=== PATIENT | female | born 1965 | race Two or more races ===

== ENCOUNTER 2018-08-10 13:19 | Outpatient (CLI) | payer MEDICAID ==
[~2018-08-10] VITALS: Ht 160 cm; Wt 109.8 kg
[2018-08-10] MEDS ORDERED: OXYBUTYNIN CHLOR5 M1 ORAL (14:55)
[2018-08-10] MEDS ORDERED: SULINDAC150 MG PO (14:55)
[2018-08-10] MEDS ORDERED: ALBUTEROL SULF8.5 GM INH (14:55)
[2018-08-10] MEDS ORDERED: VITAMIN D1000 UNI1 ORAL (14:55)
[2018-08-10] MEDS ORDERED: ASPIRIN EC81 MG ORAL (14:55)
[2018-08-10] MEDS ORDERED: LOSARTAN POTASS25 MG ORAL (14:55)
[2018-08-10] MEDS ORDERED: SIMVASTATIN40 MG ORAL (14:55)
[2018-08-10] MEDS ORDERED: FAMOTIDINE10 MG ORAL (14:55)
[2018-08-10] MEDS ORDERED: DITROPAN10 MG ORAL (14:55)
[2018-08-10] MEDS ORDERED: FLUTICASONE PRO16 G1 NASAL (14:55)
[2018-08-10] MEDS ORDERED: FEXOFENADINE H180 MG PO (14:55)
[2018-08-10] MEDS ORDERED: FLOVENT2 PUFF1 INH (14:55)
[2018-08-10 14:56] VITALS: BP 125/68
--- NOTE | 2018-08-10 15:24 | GI Initial Consult Note ---
History of Present Illness General Date patient seen: Aug 10, 2018 Time patient seen: 15:18 Referring physician: DIVINE BRYAN Reason for Consultation: PRE OP ENDOSCOPY Present Illness HPI This is a 53-year-old female patient presents today for pre-endoscopy for gastric bypass surgery. The patient reported being unable to maintain any lost weight off regardless of nutrition and diet. Patient denies any GI symptoms at this time; denies any abdominal pain, nausea vomiting or any diarrhea. The patient is aware of the risk and benefits of the gastric bypass. She also acknowledge that she refused to have the gastric balloon or a gastric sleeve performed. Patient denies any history of endoscopic or colonoscopy. Denies any unintentional weight loss or changes in dietary habits. No signs of abuse or neglect. Patient is not fall risk. Home Meds Reported Medications Sulindac (SULINDAC) 150 Mg Tablet, 150 MG PO DAILY, TAB 08/10/18 Simvastatin (ZOCOR) 40 Mg Tablet, 40 MG ORAL BEDTIME, TAB 08/10/18 Oxybutynin Chloride (OXYBUTYNIN CHLORIDE) 5 Mg Tablet, 5 MG ORAL DAILY, #30 TAB 0 Refills 08/10/18 Oxybutynin Chloride (Oxybutynin Chloride) 5 Mg Tablet, 10 MG ORAL DAILY, TAB 08/10/18 Losartan Potassium* (LOSARTAN POTASSIUM*) 25 Mg Tablet, 25 MG ORAL DAILY, TAB 08/10/18 Fluticasone Propionate (Flovent Hfa) 10.6 Gm Aer.w.adap, 2 PUFFS INH BID, #1 EA 0 Refills 08/10/18 Fluticasone Propionate* (FLUTICASONE PROPIONATE*) 16 Gm [place].susp, 1 SPRAY NASAL DAILY, EA 08/10/18 Fexofenadine Hcl (FEXOFENADINE HCL) 180 Mg Tablet, 180 MG PO DAILY, TAB 08/10/18 Famotidine (FAMOTIDINE) 10 Mg Tablet, 10 MG ORAL EVERY 12 HOURS, #60 TAB 0 Refills 08/10/18 Cholecalciferol (Vitamin D3)* (VITAMIN D*) 1,000 Unit Tablet, 2000 UNITS ORAL DAILY, #30 TAB 0 Refills 08/10/18 Aspirin Ec* (ASPIRIN EC*) 81 Mg Tablet.dr, 81 MG ORAL DAILY, TAB 08/10/18 Albuterol Sulfate* (ALBUTEROL SULFATE MDI*) 8.5 Gm Hfa.aer.ad, 1 PUFF INH Q6H, # 1 INH 0 Refills 08/10/18 Med list reviewed/reconciled: Yes Allergies: Coded Allergies: PENICILLINS (Verified Allergy, Unknown, Rash, 08/10/18) Patient History History Provided By: Patient, Medical Record H Narrative Depression GERD Hypertension Diabetes mellitus Obesity Past Surgical History: other - Bilateral knee cartilage replacement Family History Narrative Mother had breast cancer Social History: Denies: smoking, alcohol use, drug use, other Review of Systems All Other Systems: negative except mentioned in HPI Physical Exam Vital Signs Date Time Temp Pulse Resp B/P (MAP) Pulse Ox O2 Delivery O2 Flow Rate FiO2 08/10/18 14:56 97.3 85 125/68 97 Sp02 EP Interpretation: reviewed, normal General Appearance: well appearing, no apparent distress, alert Head: normocephalic EENT: PERRL/EOMI, normal ENT inspection Neck: supple Respiratory: normal breath sounds, no respiratory distress Cardiovascular: normal rate Gastrointestinal: normal inspection, non tender, soft, normal bowel sounds, non -distended Rectal: deferred Genitourinary: no CVA tenderness Musculoskeletal: normal inspection, back normal Neurologic: normal inspection, alert, oriented x3, responsive Psychiatric: normal inspection, judgement/insight normal, memory normal Skin: normal inspection, normal color, no rash, warm/dry, palpation normal, well hydrated Lymphatic: normal inspection, no adenopathy GI: Plan Problems: (1) Encounter for diagnostic endoscopy (2) GERD (gastroesophageal reflux disease) (3) Obesity (4) Hypertension (5) Diabetes mellitus Plan Plan for preop endoscopy prior gastric bypass. EGD to be scheduled pending PA, will contact patient. - NPO @ NE day prior procedure explained. Will follow with additional recs post procedure. Plan for preop endoscopy Seen with Dr. Mcrae. Thank you for this patient referral. The patient was seen and examined at bedside and all new and available data was reviewed in the patients chart. I agree with the above findings, impression and plan. (Patient seen earlier today. Signature stamp does not reflect patient encounter time.). - MD Verito Campbell,[facility] TERMINAL CLERK Aug 10, 2018 15:24
== END 2018-08-10 15:19 | disposition home or self-care (01) ==
LOC: PAN 13:19
DX: K21.9 Gastro-esophageal reflux disease without esophagitis (principal); E66.9 Obesity, unspecified; E11.9 Type 2 diabetes mellitus without complications; I10 Essential (primary) hypertension; Z79.82 Long term (current) use of aspirin; F32.9 Major depressive disorder, single episode, unspecified
CPT/HCPCS: 99202

== ENCOUNTER 2018-09-29 09:00 | Outpatient (CLI) | payer MEDICAID ==
[~2018-09-29 09:00] MED LIST: ALBUTEROL SULF8.5 GM INH; ASPIRIN EC81 MG ORAL; DITROPAN10 MG ORAL; FAMOTIDINE10 MG ORAL; FEXOFENADINE H180 MG PO; FLOVENT2 PUFF1 INH; FLUTICASONE PRO16 G1 NASAL; LOSARTAN POTASS25 MG ORAL; OXYBUTYNIN CHLOR5 M1 ORAL; SIMVASTATIN40 MG ORAL; SULINDAC150 MG PO; VITAMIN D1000 UNI1 ORAL
--- NOTE | 2018-09-29 09:25 | General Progress Note ---
Assessment/Plan Problem List: (1) Obesity ICD Codes: E66.9 - Obesity, unspecified SNOMED: 115275369, 535439248 (2) Hypertension ICD Codes: I10 - Essential (primary) hypertension SNOMED: 74097648 (3) GERD (gastroesophageal reflux disease) ICD Codes: K21.9 - Gastro-esophageal reflux disease without esophagitis SNOMED: 914267041 (4) Diabetes mellitus ICD Codes: E11.9 - Type 2 diabetes mellitus without complications SNOMED: 65353982 (5) Encounter for diagnostic endoscopy ICD Codes: Z01.818 - Encounter for other preprocedural examination SNOMED: 983681833, 373544673 Assessment/Plan: one month post gastric bypass unable to eat solid raftered by surg for possible EGD and dilatation plan when authorization is obtained Subjective ROS Limited/Unobtainable: Yes Allergies: Coded Allergies: PENICILLINS (Verified Allergy, Unknown, Rash, 08/10/18) Objective General Appearance: alert EENT: normal ENT inspection Neck: supple Cardiovascular: normal rate Respiratory/Chest: lungs clear Abdomen: normal bowel sounds, non tender, soft Extremities: non-tender Fortino Mcrae MD Sep 29, 2018 09:25
[2018-09-29 12:13] VITALS: BP 116/75
== END 2018-09-29 11:00 | disposition home or self-care (01) ==
LOC: PAN 09:00
DX: Z01.818 Encounter for other preprocedural examination (principal); E66.9 Obesity, unspecified; I10 Essential (primary) hypertension; K21.9 Gastro-esophageal reflux disease without esophagitis; E11.9 Type 2 diabetes mellitus without complications; Z88.0 Allergy status to penicillin; Z98.84 Bariatric surgery status
CPT/HCPCS: 99202

== ENCOUNTER 2018-11-30 13:20 | Outpatient (CLI) | payer MEDICAID ==
--- NOTE | 2018-11-30 14:11 | General Progress Note ---
Assessment/Plan Problem List: (1) Obesity ICD Codes: E66.9 - Obesity, unspecified SNOMED: 533041084, 246295162 (2) Hypertension ICD Codes: I10 - Essential (primary) hypertension SNOMED: 51977471 (3) GERD (gastroesophageal reflux disease) ICD Codes: K21.9 - Gastro-esophageal reflux disease without esophagitis SNOMED: 412942744 (4) Diabetes mellitus ICD Codes: E11.9 - Type 2 diabetes mellitus without complications SNOMED: 01323399 Assessment/Plan: EGD results reviewed ppi + carafate needs screening colon, will plan when we have authorization Subjective ROS Limited/Unobtainable: Yes Allergies: Coded Allergies: PENICILLINS (Verified Allergy, Unknown, Rash, 08/10/18) Objective General Appearance: alert EENT: normal ENT inspection Neck: supple Cardiovascular: normal rate Respiratory/Chest: decreased breath sounds Abdomen: normal bowel sounds, non tender, soft Extremities: non-tender Fortino Mcrae MD Nov 30, 2018 14:11
[2018-11-30] MEDS ORDERED: OMEPRAZOLE40 M1 ORAL (15:19)
[2018-11-30 15:20] VITALS: BP 103/68
== END 2018-11-30 15:20 | disposition home or self-care (01) ==
LOC: PAN 13:20
DX: K21.9 Gastro-esophageal reflux disease without esophagitis (principal); E66.9 Obesity, unspecified; I10 Essential (primary) hypertension; E11.9 Type 2 diabetes mellitus without complications; Z88.0 Allergy status to penicillin
CPT/HCPCS: 99212

== ENCOUNTER 2019-03-02 09:03 | Outpatient (CLI) | payer MEDICAID ==
[~2019-03-02 09:03] MED LIST changes: +OMEPRAZOLE40 M1 ORAL
--- NOTE | 2019-03-02 10:16 | General Progress Note ---
Assessment/Plan Problem List: (1) Constipation ICD Codes: K59.00 - Constipation, unspecified SNOMED: 88631681 (2) Gastric bypass status for obesity ICD Codes: Z98.84 - Bariatric surgery status SNOMED: 76014295, 746817472, 007814685, 857999043 (3) Obesity ICD Codes: E66.9 - Obesity, unspecified SNOMED: 109852559, 848271216 (4) Hypertension ICD Codes: I10 - Essential (primary) hypertension SNOMED: 62255956 (5) GERD (gastroesophageal reflux disease) ICD Codes: K21.9 - Gastro-esophageal reflux disease without esophagitis SNOMED: 081979796 (6) Diabetes mellitus ICD Codes: E11.9 - Type 2 diabetes mellitus without complications SNOMED: 98103203 Assessment/Plan: poor colonoscopy prep needs repeat colonoscopy in 6 months add linzess 145 Subjective ROS Limited/Unobtainable: Yes Allergies: Coded Allergies: PENICILLINS (Verified Allergy, Unknown, Rash, 08/10/18) Objective General Appearance: alert EENT: normal ENT inspection Neck: supple Cardiovascular: normal rate Respiratory/Chest: lungs clear Abdomen: normal bowel sounds, non tender, soft Extremities: non-tender Fortino Mcrae MD Mar 02, 2019 10:16
[2019-03-02 12:03] VITALS: BP 112/65
== END 2019-03-02 13:09 | disposition home or self-care (01) ==
LOC: PAN 09:03
DX: K59.00 Constipation, unspecified (principal); Z98.84 Bariatric surgery status; E66.9 Obesity, unspecified; I10 Essential (primary) hypertension; K21.9 Gastro-esophageal reflux disease without esophagitis; E11.9 Type 2 diabetes mellitus without complications; Z88.0 Allergy status to penicillin